=== PATIENT | male | born 1995 | race African-American/Black ===

== ENCOUNTER 2020-01-22 04:35 | Emergency (ER) | payer OTHER, SELFPAY ==
[2020-01-22] MEDS ORDERED: Acetaminophen 500 MG TAB ONE (04:48)
--- NOTE | 2020-01-22 07:53 | RAD ---
PORTABLE CHEST: HISTORY: Dyspnea. FINDINGS: Patchy infiltrate in the right lower lung. Left lung appears clear. Heart and mediastinum unremarka ble. IMPRESSION: Hazy patchy infiltrate in the right lung base. POS: AGW
== END 2020-01-22 05:25 | disposition home or self-care (01) ==
LOC: ERS 04:35
DX: U07.1 COVID-19 (principal); R50.9 Fever, unspecified; R06.02 Shortness of breath
CPT/HCPCS: 71045; 99284

== ENCOUNTER 2023-12-05 21:39 | Observation (INO) | payer OTHER, SELFPAY ==
[~2023-12-05 21:39] MED LIST: Iopamidol-370 76% 500 ML MDV (1 ML CHARGE) ONE
[2023-12-05 22:17] LABS: Hemoglobin 19.7 g/dL (14.0-18.0); Mean Corpuscular HGB CONC 37.2 g/dL (32.0-36.0); Mean Corpuscular Hemoglobin 29.8 pg (27.0-31.0); Mean Corpuscular Volume 80.3 fL (78.0-98.0); Mean Platelet Volume 12.9 fL (7.4-10.4); Platelet Count 244 10x3/uL (130-400); RBC Distribution Width 12.7 % (11.5-14.5)
[2023-12-05 22:29] LABS: ALT (SGPT) 29 U/L (8-55); AST (SGOT) 22 U/L (5-34); Alkaline Phosphatase 98 U/L (40-110); Anion Gap 20 mmol/L (10-20); BUN (Urea Nitrogen) 15 mg/dL (8.9-20.6); Bilirubin, Total 0.8 mg/dL (0.2-1.2); Calc. Creatinine Clearance 0 mL/min (70-130); Calcium 10.4 mg/dL (7.8-10.44); Carbon Dioxide 19 mmol/L (22-29); Chloride 103 mmol/L (98-107); Estimated GFR 83; Globulin 3.8 g/dL (2.4-3.5); Glucose 117 mg/dL (70-105); Lipase 19 U/L (8-78); Protein, Total 8.8 g/dL (6.0-8.3); Sodium 138 mmol/L (136-145)
[2023-12-05 22:35] LABS: Lymphocytes 25 % (21-51); Monocytes 5 % (0-10); Neutrophil 70 % (42-75); Nucleated RBC (Manual Ct) 1 % (0); Platelet Adequacy Comment Platelets Normal; Polychromasia MODERATE = 3-4 cells HPF (0-2)
[2023-12-05] MEDS ORDERED: Ondansetron PF 4 MG/2 ML Vial ONE (23:03)
[2023-12-05] MEDS ORDERED: Dicyclomine 20 MG/2 ML VIAL ONE (23:31)
[2023-12-05] MEDS ORDERED: diphenhydrAMINE 50 MG/ML VIAL ONE (23:31)
[2023-12-06] MEDS ORDERED: Ipratropium/Albuterol 3 ML NEB NEB PRN (00:11)
[2023-12-06] MEDS ORDERED: Promethazine HCl 25 MG/ML VIAL IM PRN (00:11)
[2023-12-06] MEDS ORDERED: Ondansetron PF 4 MG/2 ML Vial IVP PRN (00:11)
[2023-12-06] MEDS ORDERED: hydrALAZINE 20 MG/ML VIAL SLOW IVP PRN (00:11)
[2023-12-06 00:40] LABS: Bilirubin Negative (Negative); Blood, Urine Trace (Negative); Glucose, Urine (Dipstick) Negative (Negative); Ketone, Urine 40 mg/dL (Negative); Leukocyte Negative (Negative); Nitrite Negative (Negative); Protein, Urine (Dipstick) Trace mg/dL (Neg-Trace); Urobilinogen 0.2 mg/dL (Less than 2); pH, Urine 7.5 (5.0-9.0)
[2023-12-06 00:42] LABS: Bacteria/HPF None Seen HPF (None Seen); CAUTI Indications for Culture Pelvic or flank pain; Clarity Clear (Clear); Squamous Epithelial None Seen HPF (0-3); WBC/HPF 0-3 HPF (0-3)
[2023-12-06 00:45] LABS: Urine Culture Reflex No No
[2023-12-06 00:56] VITALS: BMI 26.8
[2023-12-06] MEDS: Lactated Ringer's 1,000 ML IV SCH ×2 (01:12→02:38)
[2023-12-06] MEDS: Morphine 4 MG/ML VIAL SLOW IVP PRN (01:12)
[2023-12-06] MEDS: Sodium Chloride 0.9% 1,000 ML IV SCH (02:38)
[2023-12-06] MEDS: Ketorolac Tromethamine 30 MG (1 mL) VIAL IVP SCH (05:24)
[2023-12-06] MEDS: Famotidine 20 MG TAB PO SCH (09:21)
[2023-12-06] MEDS: Famotidine/PF 20 mg/2ml Vial SLOW IVP SCH (09:21)
[2023-12-06] MEDS ORDERED: SUCCINYLCHOLINE/SOD CL,ISO/PF 200 MG/10 ML SYRINGE FS ONE (11:48)
[2023-12-06] MEDS ORDERED: EPINEPHrine 1 MG/ML VIAL ONE (11:48)
[2023-12-06] MEDS ORDERED: Rocuronium Bromide 10 MG/ML (10ML VIAL) ONE (11:48)
[2023-12-06] MEDS ORDERED: fentaNYL PF 100 MCG/2 ML SYRINGE ONE (11:48)
[2023-12-06] MEDS ORDERED: Lidocaine 2% PF 5 ML VIAL ONE (11:48)
[2023-12-06] MEDS ORDERED: Bupivacaine 0.25% HCL 30 ML VIAL ONE (11:48)
[2023-12-06] MEDS ORDERED: NEOSTIGMINE 3 MG/3 ML SYR 3 MG/3 ML SYRINGE ONE (11:49)
[2023-12-06] MEDS ORDERED: PHENYLEPHRINE-NS 100 MCG/ML 10 ML SYRINGE ONE (11:49)
[2023-12-06] MEDS ORDERED: Midazolam HCl 2 mg/2 ml Vial ONE (11:49)
[2023-12-06] MEDS ORDERED: Glycopyrrolate 0.2 MG/ML 5 ML SYRINGE ONE (11:49)
[2023-12-06] MEDS ORDERED: PROPOFOL 20 ML ONE (11:49)
[2023-12-06] MEDS ORDERED: Ondansetron PF 4 MG/2 ML Vial ONE (11:50)
[2023-12-06] MEDS ORDERED: Bupivacaine PF 0.5% 30 ML VIAL ONE (12:02)
[2023-12-06] MEDS ORDERED: Sodium Chloride 0.9% 100 ML ONE (12:23)
[2023-12-06] MEDS ORDERED: cefOXitin 2 GM VIAL ONE (12:23)
[2023-12-06] MEDS ORDERED: SUGAMMADEX SODIUM 200 MG/2 ML VIAL ONE (13:24)
[2023-12-06] MEDS ORDERED: Enoxaparin 40 MG (0.4 mL) SYRINGE ONE (14:04)
[2023-12-06] MEDS: Enoxaparin 40 MG (0.4 mL) SYRINGE SC SCH ×2 (14:06→20:29)
[2023-12-06] MEDS ORDERED: Acetaminophen 325 MG TAB PO SCH (17:00)
[2023-12-06] MEDS: Acetaminophen 500 MG TAB PO SCH (17:25)
[2023-12-06] MEDS: Methylcellulose 500 MG TAB PO SCH (20:29)
[2023-12-07] MEDS ORDERED: HYDROcodone/Acetaminophen 7.5/325 mg Tablet PO PRN (00:13)
[2023-12-07] MEDS ORDERED: Acetaminophen 650 MG Suppository PR PRN (00:13)
[2023-12-07] MEDS ORDERED: Acetaminophen 325 MG TAB PO PRN (00:13)
[2023-12-07] MEDS ORDERED: Ibuprofen 600 MG TAB PO PRN (08:00)
[2023-12-07 08:08] VITALS: BP 118/63; TEMP 98.1
[2023-12-07] MEDS: Polyethylene Glycol 3350 17 GM Packet PO SCH (09:34)
== END 2023-12-07 10:30 | disposition home or self-care (01) ==
LOC: ERS 21:39 → SURG A 12-06 00:41
PROVIDERS: ADMIT Specialist; ATTEND Specialist
PROC: 0DJ04ZZ Inspection of Upper Intestinal Tract, Percutaneous Endoscopic Approach (ICD-10-PCS; principal; 2023-12-06)
PROC: 0DJ00ZZ Inspection of Upper Intestinal Tract, Open Approach (ICD-10-PCS; 2023-12-06)
DX: K56.1 Intussusception (principal); F12.90 Cannabis use, unspecified, uncomplicated; F17.200 Nicotine dependence, unspecified, uncomplicated
CPT/HCPCS: 36415; 74177; 80053; 81001; 83605; 83690; 83735; 85025; 93005; 96361; 96372; 96374; 96375; A4314; J0171; J0665; J0694; J1200; J1650; J1885; J2001; J2250; J2270; J2405; J2704; J3490; J7050; J7120; Q9967; S0028